=== PATIENT | male | born 1950 | race Caucasian/White ===

== ENCOUNTER 2017-01-15 18:48 | Inpatient (IN) | payer MEDICARE, OTHER ==
--- NOTE | ~2017-01-15 | PN ---
Unit #: [id number] #: [id number] Patient: CHARI WORTHINGTON [id number] [place] [address] [id number] I MR#: [id number] NAME: CHARI WORTHINGTON. ROOM: P184 Age: 66 Sex: M Admission Date: 01/15/2017 : 1950 Attending Physician: Henry Joiner M.D. Admitting Physician: Henry Joiner M.D. Primary Care Physician: Generic Doctor Not In System [facility] PROGRESS NOTES DATE OF SERVICE 01/17/2017 LOCATION [facility], room #184, bed #2. SUBJECTIVE UPDATE This is a 66-year-old white male who is here with ongoing issues of alcohol detox who reports feeling "worse today." The patient was noted to be much more tremulous, blunted his affect, poor sleep, poor appetite, severely depressed but no suicidal ideation complaining of GI upset, hungry/nauseousness. He did ask for larger portions. Staff did report the patient has been less social and more isolative over night and today. Vital signs did appear to be controlled at the moment though. MENTAL STATUS EXAMINATION General appearance is a poorly groomed white male, appears older than stated age positive global tremors in hands and feet. Speech was clear and coherent with normal prosody. Mood was depressed with blunted affect. Thought process and content were organized and linear. No overt evidence of psychosis. The patient denied any active SI or HI. He denied any active psychosis at this time. The patient's memory was grossly intact. His associations were normal alert and oriented times four. Cognitive function was at baseline. Insight and judgment is limited. RECOMMENDATIONS Continue the patient's admission for ongoing issues with alcohol detox and related mood issues. Have the patient switched over to Seroquel at bedtime [address] of trazodone for sleep as well add Zoloft 50 mg daily for depression. The patient also ordered for larger portions. Detox process ongoing. Symptoms as noted above. The patient needs further stabilization at this point for safety purposes and we will continue care plan as is with additions as noted. Dictated by... Henry Joiner M.D. DONIS/prabhjot TD: 01/20/2017 02:41 JOB #: [id number] Unit #: [id number] #: [id number] Patient: CHARI WORTHINGTON PROGRESS NOTES Page 1 of 1 X Henry Joiner MD PROGRESS NOTE
--- NOTE | ~2017-01-15 | PA ---
Unit #: [id number] #: [id number] Patient: CHARI WORTHINGTON [id number] [place] [address] [id number] I MR#: [id number] NAME: CHARI WORTHINGTON. ROOM: P184 Age: 66 Sex: M Admission Date: 01/15/2017 : 1950 Date of Assessment: Attending Physician: Henry Joiner M.D. Admitting Physician: Henry Joiner M.D. PSYCHIATRIC ASSESSMENT LOCATION [facility], room #184, bed #2. DATE OF SERVICE 01/16/2017. INFORMANTS The patient and chart both seem reliable. CHIEF COMPLAINT Need to stop drinking. HISTORY OF PRESENT ILLNESS This is a 66-year-old white male with a longstanding history going back over 50 years of heavy alcohol use with drinking at least a pint plus handful of beers a day. He has been doing that for several years, exact amount is unclear. The patient has had a history of benign withdrawal at home including shakes, aches, mild pain, GI disturbance, and sweating, but no hospitalization of previous CD treatments. The patient comes in now wanting to get help getting off the alcohol for himself and his family considering he sees that it is becoming a more and more profound problem. He denied any issues with depression or anxiety and he has not had any issues in terms of seizures or hallucinations in the past, but he is noting that is becoming more difficult to not have the milder symptoms even when he does drink. The patient denied any other substances of abuse, has not been in treatment previously. PAST PSYCHIATRIC HISTORY Distant history of psychiatric evaluation is 15 years old, but no history of SI, HI, or psychosis. No inpatient care. No history of previous psychiatric treatment on medication of any kind at any time. No history of any psychosis. FAMILY HISTORY Significant for both parents having issues with alcohol dependency and abuse, and noncontributory. 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 MEDICAL HISTORY Significant for history of lung cancer and is in regular treatment for Unit #: [id number] #: [id number] Patient: CHARI WORTHINGTON that and currently in remission. HOME MEDICATIONS None. ALLERGIES Include no known drug allergies. SUBSTANCE ABUSE HISTORY As noted above with no previous treatments. No history of hospitalizations for medical standpoint either. MENTAL STATUS EXAMINATION General appearance; is a limitedly groomed white male, multiple tattoos on both arms. Speech was clear and coherent with normal prosody. Mood was dysphoric with a blunted affect. Thought process and content were grossly organized and linear. No overt evidence of psychosis. No SI, no HI reported or elicited at this time. The patient's memory was grossly intact. Associations are normal. Cognitive function was at baseline. Alert and oriented x4. Insight and judgment are limited regarding substance abuse. ASSETS AND LIABILITIES Assets include some supportive family, chcf in place. Liabilities include failure to stop drinking, no previous exposure to true CD treatment previously, and confounding medical problems with bone cancer. DIAGNOSES 1. Alcohol dependency with withdrawal. 2. Lung cancer type unknown, even per patient. PSYCHIATRIC PLAN To continue the patient's admission for safety and stabilization for detox purposes from alcohol and monitor progress continues. The patient noticed to have tremors, aches, and pains, sleep issues, some mild diaphoresis at this time. The blood pressure seems stable. We will continue to monitor in a safe controlled environment and progress as symptoms dictate. Treatment goals will be resolution of his symptoms in a controlled safe environment. Discharge planning most likely to the community CD resources and/or outpatient therapy if at all possible. Estimated length of stay approximately 4 to 5 days depending on the patient's progress and response to treatment. Dictated by... Henry Joiner M.D. DONIS/luna TD: 01/16/2017 13:52 JOB #: [id number] Unit #: [id number] #: [id number] Patient: CHARI WORTHINGTON PSYCHIATRIC ASSESSMENT Page 1 of 1 X Henry Joiner MD X PSYCHIATRIC ASSESSMENT
--- NOTE | ~2017-01-15 | DS ---
Unit #: [id number] #: [id number] Patient: CHARI WORTHINGTON [id number] [place] [address] [id number] I MR#: [id number] NAME: CHARI WORTHINGTON. ROOM: P184 Age: 66 Sex: M Admission Date: 01/15/2017 : 1950 Discharge Date: 01/19/2017 Attending Physician: Henry Joiner M.D. Primary Care Physician: Generic Doctor Not In System DISCHARGE SUMMARY REASON FOR ADMISSION Alcohol dependency with detox. DIAGNOSTIC STUDIES Pertinent laboratory data, the patient had routine blood work which included a CMP that showed slightly elevated random glucose of 133, total bilirubin of 2.2, AST of 75, ALT of 49, otherwise unimpressive. CBC showed white blood cell count low at 1.6, hemoglobin 12.4, hematocrit 37.8, platelets of 107, minor shift in differential noted in addition. Urine toxicology was negative across the board. Urinalysis showed trace protein, 1+ urobilinogen, otherwise negative findings. HOSPITAL COURSE The patient was admitted for safety and stabilization for ongoing issues with alcohol dependence with withdrawal and was placed on appropriate detox protocols. The patient also has a history of lung cancer but is not on any regular medication and denied any acute symptoms and/or complaints from a physical standpoint at this time. Over the course of the hospitalization the patient's symptoms underwent typical progression in terms of aches, pains, tremors, diaphoresis, some anxiety, sleep disturbance, GI disturbance, et cetera. Overall, the patient tolerated these issues well and progressed without issue. The patient was noted to be extremely tremulous and depressed on the second day of admission but tis rapidly improved by the third and then prior to discharge there was no overt symptoms. The patient was still having some issues overall with low energy but he said his sleep is better as was his mood. The patient did complain during this hospitalization of wanting help for depression and was placed on Zoloft 50 mg daily by mouth for which he tolerated well. He also was given Seroquel at bedtime to help with his sleep during this hospitalization but was not discharged home on it. At the time of discharge, overall the patient was reporting feeling better, no active issues with depression or SI. There was no active evidence of SI, HI, or psychosis. He was focused on return home and follow up with the [facility]. The patient declined any other additional outpatient care at this time. His vital signs appeared stable at discharge. Unit #: [id number] #: [id number] Patient: CHARI WORTHINGTON DISCHARGE DIAGNOSES [place] I Alcohol dependency with withdrawal. [place] II [place] III Lung cancer, type undifferentiated. [place] IV [place] V DISCHARGE INSTRUCTIONS Follow up care to include [facility] as per patient's request. DISCHARGE MEDICATIONS Included: Zoloft 50 mg daily by mouth for depression symptoms CONDITION AT DISCHARGE Improving. PROGNOSIS Poor given the patient's poor support. 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 DIET AND ACTIVITY Diet is regular. Activity is as tolerated with sobriety encouraged. Dictated by... Henry Joiner M.D. DONIS/jose alberto TD: 01/19/2017 11:48 JOB #: [id number] DISCHARGE SUMMARY Page 1 of 1 X Henry Joiner MD X DISCHARGE SUMMARY
--- NOTE | ~2017-01-15 | PN ---
Unit #: [id number] #: [id number] Patient: CHARI WORTHINGTON [id number] [place] [address] [id number] I MR#: [id number] NAME: CHARI WORTHINGTON. ROOM: P184 Age: 66 Sex: M Admission Date: 01/15/2017 : 1950 Attending Physician: Henry Joiner M.D. Admitting Physician: Henry Joiner M.D. Primary Care Physician: Generic Doctor Not In System [facility] PROGRESS NOTES DATE OF SERVICE: 01/18/2017 LOCATION [facility], room #184, bed #2. SUBJECTIVE This is a 66-year-old white male who is here with ongoing issues of detox from substance abuse. The patient reports feeling "better today." Still noting sleep is poor. Tremors are still present, but better. The patient seemed less unsteady on his feet, but there was still some instability noted. Reports headaches, aches, and pains are better, but still present. Appetite is improving, but still not at a desirable level yet. Sleep overall was the patient's major complaint still again today. Vital signs are more stable today with blood pressure 123/70, pulse 72, and respiratory rate 16. MENTAL STATUS EXAMINATION General appearance was a limitedly groomed white male, still on hospital attire, unshaven, but improved eye contact, less tremors. Speech was clear and coherent with normal prosody. Mood was "better," still with a blunted affect. Thought process and content were grossly organized and linear. No overt evidence of psychosis. No SI, no HI reported or elicited. The patient's memory was grossly intact. Associations were normal. His cognitive function was at baseline. He is alert and oriented x4. Insight and judgment are limited, but improving. RECOMMENDATIONS We will continue the patient's admission for further safety and stabilization for ongoing detox issues. The patient's alcohol withdrawal protocol seems to be showing some improvement, still not at a desired baseline. We will increase the patient's Seroquel tonight to help with additional sleep issues and possible mood complaints. Overall, the patient is making progress, but further care is necessary. Discussed possibility of community resources when the patient is ready for discharge, for which he was receptive. Dictated by... Jefry Arcos/luna Unit #: [id number] #: [id number] Patient: CHARI WORTHINGTON TD: 01/18/2017 14:08 JOB #: [id number] [facility] PROGRESS NOTES Page 1 of 1 X Henry Joiner MD X PROGRESS NOTE
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
[2017-01-16 11:28] LABS: URINE APPEARANCE TURBID; URINE BILIRUBIN NEG (NEG); URINE BLOOD NEG (NEG); URINE COLOR DK YELLOW; URINE GLUCOSE NEG (NEG); URINE KETONE 1+ (NEG); URINE LEUKOCYTE ESTERASE NEG (NEG); URINE NITRATE NEG (NEG); URINE PROTEIN TRACE (NEG); URINE SPECIFIC GRAVITY 1.022 (1.003-1.035)
[2017-01-16 11:40] LABS: THYROID STIMULATING HORMONE 1.31 uIU/ml (0.34-5.60)
[2017-01-16 11:45] LABS: BASOPHIL% 1.5 % (0-2.5); EOSINOPHIL# 0.2 X10e3 (0-0.7); EOSINOPHIL% 9.5 % (0.0-7.0); HEMATOCRIT 37.8 % (38.0-50.0); HEMOGLOBIN 12.4 gm/dL (13.0-16.0); LYMPHOCYTE# 0.5 X10e3 (1.0-3.5); LYMPHOCYTE% 30.2 % (17.0-45.0); MEAN CELL VOLUME 95.5 FL (83-96); MEAN CORPUSCULAR HEMOGLOBIN 31.3 PG (28-34); MEAN CORPUSCULAR HGB CONC 32.8 g/dL (30-36); MEAN PLATELET VOLUME 7.4 FL (6.5-11.5); MONOCYTE# 0.2 X10e3 (0-1.0); MONOCYTE% 15.5 % (3.0-12.0); NEUTROPHIL# 0.7 X10e3 (1.5-7.1); NEUTROPHIL% 43.3 % (40-75); PLATELET COUNT 107 X10e3 (140-420); RED BLOOD COUNT 3.96 X10e (3.90-5.60); RED CELL DISTRIBUTION WIDTH 16.1 % (11.0-15.5); WHITE BLOOD COUNT 1.6 X10e3 (4.0-10.5)
[2017-01-16 11:47] LABS: DIFF IND YES; FREE THYROXIN (T4) 0.7 ng/dL (0.58-1.64)
[2017-01-16 11:53] LABS: ALBUMIN SERUM 3.6 g/dL (3.5-5.0); BILIRUBIN,TOTAL 2.2 mg/dL (0.2-2.0); BUN/CREATININE RATIO 28.75; CALCIUM SERUM 8.9 mg/dL (8.4-10.2); CREATININE SERUM 0.8 mg/dL (0.6-1.4); GLOM FILT RATE Estimated 93.1 mL/min (>60); POTASSIUM 3.8 mmol/L (3.5-5.1); PROTEIN TOTAL SERUM 6.5 g/dL (6.0-8.3)
[2017-01-16 12:23] LABS: ANISOCYTOSIS SL; PLATELET ESTIMATE DECREASED (NORMAL)
[2017-01-16 12:29] LABS: AMPHETAMINE NEG (NEG); BARBITURATES NEG (NEG); BENZODIAZEPINES NEG (NEG); COCAINE NEG (NEG); MARIJUANA NEG (NEG); OPIATES NEG (NEG); TRICYCLIC ANTIDEPRESSANTS NEG (NEG); U METHADONE NEG (NEG)
== END 2017-01-19 10:20 | disposition home or self-care (01) | DRG 897 ==
LOC: P1E 18:48
PROVIDERS: Psychiatry & Neurology Psychiatry
PROC: HZ2ZZZZ Detoxification Services for Substance Abuse Treatment (ICD-10-PCS; principal; 2017-01-15)
DX: F10.239 Alcohol dependence with withdrawal, unspecified (principal); C34.90 Malignant neoplasm of unspecified part of unspecified bronchus or lung; Z59.0 Homelessness
CPT/HCPCS: 80053; 80307; 81003; 84439; 84443; 85025